=== PATIENT | female | born 1955 | race Caucasian/White ===

== ENCOUNTER 2017-11-12 18:34 | Inpatient (IN) ==
[2017-11-12] MEDS ORDERED: PANTOPRAZOLE 40 MG VIAL IV STA (19:27)
[2017-11-12] MEDS ORDERED: HYDROmorphone 2 MG/1 ML VIAL IV STA (19:27)
[2017-11-12] MEDS ORDERED: SODIUM CHLORIDE 0.9% 500 ML IV STA (19:27)
[2017-11-12] MEDS ORDERED: ONDANSETRON 4 MG/2 ML VIAL IV STA (19:27)
[2017-11-12] MEDS ORDERED: HYDROmorphone 2 MG/1 ML VIAL ONE (19:37)
[2017-11-12] MEDS ORDERED: ONDANSETRON 4 MG/2 ML VIAL ONE (19:37)
[2017-11-12] MEDS ORDERED: PANTOPRAZOLE 40 MG VIAL IV ONE (19:37)
[2017-11-12 19:41] LABS: Basophils # 0.1 10*3/uL (0.0-0.2); Basophils % 0.5 % (0.0-0.8); Eosinophils # 0.2 10*3/uL (0.0-0.87); Eosinophils % 1.6 % (0.00-10.9); Hematocrit 40.8 VOL% (35.7-47.0); Hemoglobin 13.4 GM/DL (12.0-16.0); Immature Granulocytes % 0.5 %; Immature Granulocytes Absolute 0.05 #; Lymphocytes # 2.7 10*3/uL (1.4-4.0); Lymphocytes % 26.1 % (21.3-54.2); Mean Corpuscular HGB Conc 32.8 GM/DL (32-36); Mean Corpuscular Hemoglobin 30 PG (27-34); Mean Corpuscular Volume 90.5 FL (87-102); Mean Platelet Volume 9.7 FL (9.6-12.0); Monocytes # 1.3 10*3/uL (0.11-0.8); Neutrophils # 5.9 10*3/uL (1.4-7.4); Neutrophils % 58.3 % (38.7-73.9); Platelet Count 628 T/CUMM (130-400); Red Blood Count 4.51 MC/CUMM (3.8-5.5); Red Cell Distribution Width 18.5 % (9.3-17.3); White Blood Count 10.2 T/CUMM (4-12)
[2017-11-12 20:15] LABS: Alanine Aminotransferase 17 U/L (13-56); Albumin 2.6 G/DL (3.4-5.0); Alkaline Phosphatase 110 U/L (45-117); Amylase 28 U/L (25-115); Aspartate Amino Transferase 29 U/L (0-37); Blood Urea Nitrogen 9 MG/DL (7-18); Calcium 9.2 MG/DL (8.5-10.1); Glucose 92 MG/DL (74-106); Osmolality,Calculated 268.1 MOS/KG (273-304); Potassium 3.8 MMOL/L (3.5-5.1); Sodium 135 MMOL/L (136-145); Total Protein 6.7 G/DL (6.4-8.3); Troponin I Only < 0.015 NG/ML (0.00-0.045)
[2017-11-12 22:05] LABS: Apearance,Urine CLEAR (Clear); Bilirubin,Urine Negative (Negative); Blood, Urine Negative (Negative); Glucose,Urine (UA) Negative (Negative); Ketones,Urine Negative (Negative); Mucus,Urine Occasional /LPF (Occasional); Nitrite,Urine Negative (Negative); Protein,Urine Negative; Squamous Epithelial Cell,Urine Occasional /HPF (0-10); Urine Color Amber (Yellow); Urine Specific Gravity 1.017 (1.001-1.035); WBC,Urine 4 /HPF (0-6)
[2017-11-12 22:50] LABS: Lactic Acid 1.1 MMOL/L (0.4-2.0)
[2017-11-12] MEDS ORDERED: ONDANSETRON 4 MG/2 ML VIAL IV PRN (22:50)
[2017-11-13] MEDS: ENOXAPARIN 40 MG/0.4 ML SYRINGE SUBCUT SCH ×2 (00:29→23:30)
[2017-11-13] MEDS: SODIUM CHLORIDE 0.9% 1,000 ML IV SCH ×2 (00:33→15:03)
[2017-11-13] MEDS: PHENYTOIN 100 MG/2 ML VIAL IV SCH ×4 (00:33→23:31)
[2017-11-13 06:22] LABS: Basophils # 0.1 10*3/uL (0.0-0.2); Basophils % 0.4 % (0.0-0.8); Eosinophils # 0.2 10*3/uL (0.0-0.87); Eosinophils % 1.4 % (0.00-10.9); Hematocrit 38.2 VOL% (35.7-47.0); Hemoglobin 12.4 GM/DL (12.0-16.0); Immature Granulocytes % 0.4 %; Immature Granulocytes Absolute 0.05 #; Lymphocytes # 2.3 10*3/uL (1.4-4.0); Lymphocytes % 19.7 % (21.3-54.2); Mean Corpuscular HGB Conc 32.5 GM/DL (32-36); Mean Corpuscular Hemoglobin 30 PG (27-34); Mean Platelet Volume 10.3 FL (9.6-12.0); Monocytes # 1.4 10*3/uL (0.11-0.8); Monocytes % 11.9 % (1.7-12.7); Neutrophils # 7.8 10*3/uL (1.4-7.4); Neutrophils % 66.2 % (38.7-73.9); Platelet Count 597 T/CUMM (130-400); Red Cell Distribution Width 18.3 % (9.3-17.3); White Blood Count 11.8 T/CUMM (4-12)
[2017-11-13 06:59] LABS: Blood Urea Nitrogen 8 MG/DL (7-18); Calcium 8.6 MG/DL (8.5-10.1); Glucose 99 MG/DL (74-106); Osmolality,Calculated 270.8 MOS/KG (273-304); Potassium 4.2 MMOL/L (3.5-5.1); Sodium 137 MMOL/L (136-145)
[2017-11-13] MEDS ORDERED: DORZOLAMIDE/TIMOLOL OPH SOLN 10 ML BOTTLE RIGHT EYE SCH (09:00)
[2017-11-13] MEDS: PANTOPRAZOLE 40 MG VIAL IV SCH (09:01)
[2017-11-13] MEDS: BRIMONIDINE 0.1% OPH SOLN 5 ML BOTTLE RIGHT EYE SCH ×3 (09:02→21:57)
[2017-11-13] MEDS ORDERED: SKIN HEALING OINT (AQUAPHOR) 50 GM TUBE TOP PRN (14:15)
[2017-11-13] MEDS: BIMATOPROST 0.01% OPH SOLN 2.5 ML BOTTLE RIGHT EYE SCH (21:56)
[2017-11-13] MEDS: ZINC OXIDE PASTE 113 GM TUBE TOP SCH (21:58)
[2017-11-14] MEDS: SODIUM CHLORIDE 0.9% 1,000 ML IV SCH ×2 (05:05→15:06)
[2017-11-14 06:32] LABS: Calcium 8.5 MG/DL (8.5-10.1); Osmolality,Calculated 271.8 MOS/KG (273-304); Potassium 3.7 MMOL/L (3.5-5.1)
[2017-11-14] MEDS: PANTOPRAZOLE 40 MG VIAL IV SCH (09:20)
[2017-11-14] MEDS: ZINC OXIDE PASTE 113 GM TUBE TOP SCH ×2 (09:21→22:20)
[2017-11-14] MEDS: BRIMONIDINE 0.1% OPH SOLN 5 ML BOTTLE RIGHT EYE SCH ×3 (09:21→22:33)
[2017-11-14] MEDS: PHENYTOIN 100 MG/2 ML VIAL IV SCH ×2 (09:21→15:07)
[2017-11-14] MEDS ORDERED: LORazepam 2 MG/1 ML VIAL IV ONE (15:41)
[2017-11-14] MEDS: MIRTAZAPINE 15 MG TABLET PEG SCH (22:31)
[2017-11-14] MEDS: LORazepam 0.5 MG TABLET PEG SCH (22:31)
[2017-11-14] MEDS: BIMATOPROST 0.01% OPH SOLN 2.5 ML BOTTLE RIGHT EYE SCH (22:33)
[2017-11-15] MEDS: PHENYTOIN 100 MG/2 ML VIAL IV SCH ×3 (04:49→16:47)
[2017-11-15] MEDS: SODIUM CHLORIDE 0.9% 1,000 ML IV SCH ×2 (05:00→22:35)
[2017-11-15 05:46] LABS: Calcium 8.3 MG/DL (8.5-10.1); Osmolality,Calculated 267.1 MOS/KG (273-304); Potassium 4.3 MMOL/L (3.5-5.1)
[2017-11-15] MEDS: ENOXAPARIN 40 MG/0.4 ML SYRINGE SUBCUT SCH (06:14)
[2017-11-15] MEDS: LEVOTHYROXINE 112 MCG TABLET PEG SCH (06:26)
[2017-11-15] MEDS: QUEtiapine 25 MG TABLET PEG SCH (10:20)
[2017-11-15] MEDS: LORazepam 0.5 MG TABLET PEG SCH ×2 (10:20→22:16)
[2017-11-15] MEDS: ZINC OXIDE PASTE 113 GM TUBE TOP SCH ×2 (10:21→21:19)
[2017-11-15] MEDS: BRIMONIDINE 0.1% OPH SOLN 5 ML BOTTLE RIGHT EYE SCH ×3 (10:21→22:33)
[2017-11-15] MEDS: PANTOPRAZOLE 40 MG VIAL IV SCH (10:22)
[2017-11-15] MEDS: MIRTAZAPINE 15 MG TABLET PEG SCH (22:17)
[2017-11-15] MEDS: BIMATOPROST 0.01% OPH SOLN 2.5 ML BOTTLE RIGHT EYE SCH (22:33)
[2017-11-16] MEDS: ENOXAPARIN 40 MG/0.4 ML SYRINGE SUBCUT SCH ×2 (04:23→22:49)
[2017-11-16] MEDS: PHENYTOIN 100 MG/2 ML VIAL IV SCH ×3 (04:26→19:01)
[2017-11-16] MEDS: LEVOTHYROXINE 112 MCG TABLET PEG SCH (06:38)
[2017-11-16] MEDS: BRIMONIDINE 0.1% OPH SOLN 5 ML BOTTLE RIGHT EYE SCH ×3 (09:33→21:17)
[2017-11-16] MEDS: ZINC OXIDE PASTE 113 GM TUBE TOP SCH ×2 (09:34→21:13)
[2017-11-16] MEDS: LORazepam 0.5 MG TABLET PEG SCH ×2 (09:34→21:13)
[2017-11-16] MEDS: QUEtiapine 25 MG TABLET PEG SCH (09:34)
[2017-11-16] MEDS: PANTOPRAZOLE 40 MG VIAL IV SCH (09:34)
[2017-11-16] MEDS: SODIUM CHLORIDE 0.9% 1,000 ML IV SCH ×2 (09:35→21:22)
[2017-11-16 20:19] VITALS: BP 128/70
[2017-11-16] MEDS: MIRTAZAPINE 15 MG TABLET PEG SCH (21:13)
[2017-11-16] MEDS: BIMATOPROST 0.01% OPH SOLN 2.5 ML BOTTLE RIGHT EYE SCH (21:17)
== END 2017-11-16 23:05 | DRG 395 ==
LOC: EDUNIT# → N.ED 18:34 → SUATTDRO 22:49 → N.EDINP 22:49 → N.3E 23:12
PROVIDERS: ADMIT Internal Medicine; ATTEND Family Medicine

== ENCOUNTER 2019-05-10 10:12 | Observation (INO) ==
[2019-05-10] MEDS ORDERED: LORazepam 2 MG/1 ML VIAL IV STA (11:17)
[2019-05-10 11:30] LABS: Basophils % 0.3 % (0.0-0.8); Eosinophils % 0.1 % (0.00-10.9); Hematocrit 43.4 VOL% (35.7-47.0); Hemoglobin 14.7 GM/DL (12.0-16.0); Immature Granulocytes % 0.3 %; Immature Granulocytes Absolute 0.03 #; Lymphocytes # 1.2 10*3/uL (1.4-4.0); Lymphocytes % 13.3 % (21.3-54.2); Mean Corpuscular HGB Conc 33.9 GM/DL (32-36); Mean Corpuscular Volume 89.3 FL (87-102); Mean Platelet Volume 9.7 FL (9.6-12.0); Monocytes % 13.8 % (1.7-12.7); Neutrophils % 72.2 % (38.7-73.9); Platelet Count 366 T/CUMM (130-400); Red Blood Count 4.86 MC/CUMM (3.8-5.5); Red Cell Distribution Width 13.2 % (9.3-17.3); White Blood Count 8.8 T/CUMM (4-12)
[2019-05-10 12:06] LABS: Albumin 3.8 G/DL (3.4-5.0); Bilirubin,Total 0.4 MG/DL (0.2-1.0); Calcium 9.5 MG/DL (8.5-10.1); Osmolality,Calculated 266.2 MOS/KG (273-304); Total Protein 8.2 G/DL (6.4-8.3)
[2019-05-10 12:40] LABS: Amorphous Crystals,Urine Occasional /HPF (Few); Apearance,Urine Slightly Hazy (Clear); Bacteria,Urine Occasional /HPF (Few); Bilirubin,Urine Negative (Negative); Blood, Urine Negative (Negative); Glucose,Urine (UA) Negative (Negative); Ketones,Urine Negative (Negative); Mucus,Urine Occasional /LPF (Occasional); Nitrite,Urine Negative (Negative); Protein,Urine Negative; RBC,Urine 1 /HPF (0-4); Squamous Epithelial Cell,Urine Occasional /HPF (0-10); Urine Color Yellow (Yellow); Urine Specific Gravity 1.015 (1.001-1.035); Urine Urobilinogen < 2.0 EU/DL (0.2-1.0); WBC,Urine 1 /HPF (0-6)
[2019-05-10] MEDS ORDERED: LACTULOSE 20 GM/30 ML UDCUP PO PRN (13:10)
[2019-05-10] MEDS ORDERED: ACETAMINOPHEN 325 MG TABLET PO PRN (13:10)
[2019-05-10] MEDS ORDERED: ONDANSETRON 4 MG/2 ML VIAL IV PRN (13:10)
[2019-05-10] MEDS ORDERED: ACETAMINOPHEN 325 MG/10.15 ML UDCUP PO PRN (14:00)
[2019-05-10] MEDS ORDERED: BISACODYL 10 MG SUPP RECTAL ONE (14:02)
[2019-05-10] MEDS: BRIMONIDINE 0.1% OPH SOLN 5 ML BOTTLE RIGHT EYE SCH ×2 (15:42→21:04)
[2019-05-10] MEDS: POLYETHYLENE GLYCOL POWDER 17 GM PACK PEG SCH ×2 (15:42→21:04)
[2019-05-10] MEDS: ALUMINUM/MAGNES/SIMETH MAX STR 30 ML UDCUP PEG SCH ×2 (15:42→21:04)
[2019-05-10] MEDS: SODIUM CHLORIDE 0.9% 1,000 ML IV SCH (16:38)
[2019-05-10] MEDS ORDERED: MIRTAZAPINE 15 MG TABLET PEG SCH (20:00)
[2019-05-10] MEDS ORDERED: BIMATOPROST 0.01% OPH SOLN 2.5 ML BOTTLE RIGHT EYE SCH (20:00)
[2019-05-10] MEDS ORDERED: ENOXAPARIN 40 MG/0.4 ML SYRINGE SUBCUT SCH (21:00)
[2019-05-10] MEDS: LORazepam 0.5 MG TABLET PEG SCH (21:03)
[2019-05-10] MEDS: risperiDONE 1 MG TABLET PEG SCH (21:03)
[2019-05-10] MEDS: DOCUSATE SODIUM 100 MG/10 ML UDCUP PO SCH (21:03)
[2019-05-10] MEDS: PHENYTOIN 100 MG/4 ML UDCUP PER TUBE SCH (21:03)
[2019-05-10] MEDS: DORZOLAMIDE/TIMOLOL OPH SOLN 10 ML BOTTLE RIGHT EYE SCH (21:04)
[2019-05-10] MEDS: OXcarbazepine 300 MG TABLET PEG SCH (21:04)
[2019-05-10] MEDS: FAMOTIDINE 20 MG/2 ML VIAL IV SCH (21:04)
[2019-05-11] MEDS: SODIUM CHLORIDE 0.9% 1,000 ML IV SCH ×2 (02:33→10:35)
[2019-05-11 05:22] LABS: Basophils % 0.4 % (0.0-0.8); Eosinophils # 0.1 10*3/uL (0.0-0.87); Hematocrit 38.6 VOL% (35.7-47.0); Immature Granulocytes % 0.1 %; Immature Granulocytes Absolute 0.01 #; Lymphocytes # 1.4 10*3/uL (1.4-4.0); Mean Corpuscular HGB Conc 33.7 GM/DL (32-36); Mean Corpuscular Volume 91.9 FL (87-102); Mean Platelet Volume 10.8 FL (9.6-12.0); Monocytes % 13.9 % (1.7-12.7); Neutrophils % 65.6 % (38.7-73.9); Platelet Count 310 T/CUMM (130-400); Red Cell Distribution Width 13.7 % (9.3-17.3); White Blood Count 7.1 T/CUMM (4-12)
[2019-05-11 05:31] LABS: Calcium 8.7 MG/DL (8.5-10.1); Osmolality,Calculated 267.1 MOS/KG (273-304)
[2019-05-11] MEDS ORDERED: LEVOTHYROXINE 112 MCG TABLET PEG SCH (06:00)
[2019-05-11] MEDS: PHENYTOIN 100 MG/4 ML UDCUP PER TUBE SCH (06:24)
[2019-05-11] MEDS ORDERED: QUEtiapine 100 MG TABLET PEG SCH (07:00)
[2019-05-11] MEDS ORDERED: POTASSIUM CHLORIDE 20 MEQ/15 ML UDCUP PEG SCH (08:00)
[2019-05-11] MEDS: BRIMONIDINE 0.1% OPH SOLN 5 ML BOTTLE RIGHT EYE SCH (08:34)
[2019-05-11] MEDS: ALUMINUM/MAGNES/SIMETH MAX STR 30 ML UDCUP PEG SCH (08:35)
[2019-05-11] MEDS: DOCUSATE SODIUM 100 MG/10 ML UDCUP PO SCH (08:35)
[2019-05-11] MEDS: OXcarbazepine 300 MG TABLET PEG SCH (08:35)
[2019-05-11] MEDS: LORazepam 0.5 MG TABLET PEG SCH (08:35)
[2019-05-11] MEDS: risperiDONE 1 MG TABLET PEG SCH (08:36)
[2019-05-11] MEDS: POLYETHYLENE GLYCOL POWDER 17 GM PACK PEG SCH (08:36)
[2019-05-11] MEDS: FAMOTIDINE 20 MG/2 ML VIAL IV SCH (08:36)
[2019-05-11] MEDS ORDERED: LANSOPRAZOLE ODT 30 MG TABLET PO SCH (09:00)
[2019-05-11] MEDS ORDERED: BISACODYL 5 MG TABLET PO SCH (09:00)
[2019-05-11] MEDS: DORZOLAMIDE/TIMOLOL OPH SOLN 10 ML BOTTLE RIGHT EYE SCH (10:01)
[2019-05-11 11:45] VITALS: BP 135/91
== END 2019-05-11 14:42 ==
LOC: EDBD → EDUNIT# → N.ED 10:12 → N.EDINP 10:12 → N.2E 13:30
PROVIDERS: ADMIT Hospitalist; ATTEND Hospitalist

== ENCOUNTER 2019-10-22 12:43 | Inpatient (IN) ==
[2019-10-22 14:50] LABS: Basophils # 0.1 10*3/uL (0.0-0.2); Basophils % 0.5 % (0.0-0.8); Eosinophils # 0.1 10*3/uL (0.0-0.87); Eosinophils % 1.1 % (0.00-10.9); Hematocrit 40.5 VOL% (35.7-47.0); Hemoglobin 13.6 GM/DL (12.0-16.0); Immature Granulocytes % 0.5 %; Immature Granulocytes Absolute 0.05 #; Lymphocytes # 1.7 10*3/uL (1.4-4.0); Lymphocytes % 17.6 % (21.3-54.2); Mean Corpuscular HGB Conc 33.6 GM/DL (32-36); Mean Corpuscular Volume 92.3 FL (87-102); Mean Platelet Volume 9.5 FL (9.6-12.0); Monocytes % 11.9 % (1.7-12.7); Neutrophils % 68.4 % (38.7-73.9); Platelet Count 355 T/CUMM (130-400); Red Blood Count 4.39 MC/CUMM (3.8-5.5); White Blood Count 9.8 T/CUMM (4-12)
[2019-10-22 15:15] LABS: Albumin 3.1 G/DL (3.4-5.0); Bilirubin,Total 0.4 MG/DL (0.2-1.0); Calcium 8.6 MG/DL (8.5-10.1); Osmolality,Calculated 258.8 MOS/KG (273-304); Total Protein 7.2 G/DL (6.4-8.3)
[2019-10-22] MEDS ORDERED: MAGNESIUM SULF RIDER 2 GM in PREMIX 1 EACH IV PRN (16:46)
[2019-10-22] MEDS ORDERED: MAGNESIUM SULF RIDER 4 GM in PREMIX 1 EACH IV PRN (16:46)
[2019-10-22] MEDS ORDERED: LORazepam 2 MG/1 ML VIAL IV PRN (16:49)
[2019-10-22] MEDS ORDERED: PHENYTOIN 100 MG/2 ML VIAL IV SCH (17:00)
[2019-10-22] MEDS: SODIUM CHLORIDE 0.9% 1,000 ML IV SCH (18:00)
[2019-10-22] MEDS ORDERED: LORazepam 2 MG/1 ML VIAL IV ONE (18:33)
[2019-10-22] MEDS: ENOXAPARIN 40 MG/0.4 ML SYRINGE SUBCUT SCH (19:15)
[2019-10-22] MEDS: LORazepam 2 MG/1 ML VIAL IV SCH (21:09)
[2019-10-22] MEDS: PANTOPRAZOLE 40 MG VIAL IV SCH (21:11)
[2019-10-22] MEDS: BIMATOPROST 0.01% OPH SOLN 2.5 ML BOTTLE RIGHT EYE SCH (21:13)
[2019-10-22] MEDS: BRIMONIDINE 0.1% OPH SOLN 5 ML BOTTLE RIGHT EYE SCH (21:13)
[2019-10-22] MEDS: DORZOLAMIDE/TIMOLOL OPH SOLN 10 ML BOTTLE RIGHT EYE SCH (21:16)
[2019-10-22] MEDS: PHENYTOIN IV SCH (21:17)
[2019-10-22] MEDS: SODIUM CHLORIDE 0.9% IV SCH (21:17)
[2019-10-23] MEDS: MORPHINE 4 MG/1 ML VIAL IV PRN ×2 (02:22→13:29)
[2019-10-23 05:35] LABS: Basophils # 0.1 10*3/uL (0.0-0.2); Basophils % 0.6 % (0.0-0.8); Eosinophils # 0.1 10*3/uL (0.0-0.87); Eosinophils % 1.4 % (0.00-10.9); Hematocrit 38.3 VOL% (35.7-47.0); Hemoglobin 12.8 GM/DL (12.0-16.0); Immature Granulocytes % 0.5 %; Immature Granulocytes Absolute 0.04 #; Lymphocytes # 1.4 10*3/uL (1.4-4.0); Lymphocytes % 16.8 % (21.3-54.2); Mean Corpuscular HGB Conc 33.4 GM/DL (32-36); Mean Corpuscular Volume 92.3 FL (87-102); Mean Platelet Volume 10.1 FL (9.6-12.0); Monocytes % 13.5 % (1.7-12.7); Neutrophils % 67.2 % (38.7-73.9); Platelet Count 343 T/CUMM (130-400); Red Blood Count 4.15 MC/CUMM (3.8-5.5); White Blood Count 8.5 T/CUMM (4-12)
[2019-10-23] MEDS: PHENYTOIN IV SCH ×3 (05:54→22:10)
[2019-10-23] MEDS: SODIUM CHLORIDE 0.9% IV SCH ×3 (05:54→22:10)
[2019-10-23 06:00] LABS: Albumin 2.9 G/DL (3.4-5.0); Bilirubin,Total 1.3 MG/DL (0.2-1.0); Calcium 8.3 MG/DL (8.5-10.1); Osmolality,Calculated 265.2 MOS/KG (273-304); Total Protein 6.7 G/DL (6.4-8.3)
[2019-10-23 06:06] LABS: Risk Ratio 3.44; Thyroid Stimulating Hormone 2.19 uIU/ml (0.358-3.74)
[2019-10-23] MEDS: PANTOPRAZOLE 40 MG VIAL IV SCH ×2 (08:10→22:07)
[2019-10-23] MEDS: BRIMONIDINE 0.1% OPH SOLN 5 ML BOTTLE RIGHT EYE SCH ×3 (08:10→22:14)
[2019-10-23] MEDS: DORZOLAMIDE/TIMOLOL OPH SOLN 10 ML BOTTLE RIGHT EYE SCH ×2 (08:10→22:14)
[2019-10-23] MEDS: LORazepam 2 MG/1 ML VIAL IV SCH ×2 (08:12→22:02)
[2019-10-23] MEDS ORDERED: NEOSTIGMINE 10 MG/10 ML VIAL IV SCH (11:30)
[2019-10-23] MEDS: NEOSTIGMINE SUBCUT SCH ×2 (13:31→22:01)
[2019-10-23] MEDS: ENOXAPARIN 40 MG/0.4 ML SYRINGE SUBCUT SCH (22:03)
[2019-10-23] MEDS: BIMATOPROST 0.01% OPH SOLN 2.5 ML BOTTLE RIGHT EYE SCH (22:14)
[2019-10-24] MEDS: SODIUM CHLORIDE 0.9% 1,000 ML IV SCH ×3 (00:37→11:15)
[2019-10-24] MEDS: SODIUM CHLORIDE 0.9% IV SCH ×3 (07:06→21:40)
[2019-10-24] MEDS: PHENYTOIN IV SCH ×3 (07:06→21:40)
[2019-10-24] MEDS: NEOSTIGMINE SUBCUT SCH ×3 (07:08→21:29)
[2019-10-24 07:25] LABS: Basophils % 0.5 % (0.0-0.8); Eosinophils # 0.1 10*3/uL (0.0-0.87); Eosinophils % 1.3 % (0.00-10.9); Hematocrit 37.7 VOL% (35.7-47.0); Hemoglobin 12.6 GM/DL (12.0-16.0); Immature Granulocytes % 0.4 %; Immature Granulocytes Absolute 0.03 #; Lymphocytes # 1.1 10*3/uL (1.4-4.0); Lymphocytes % 14.4 % (21.3-54.2); Mean Corpuscular HGB Conc 33.4 GM/DL (32-36); Mean Corpuscular Volume 92.6 FL (87-102); Mean Platelet Volume 9.6 FL (9.6-12.0); Neutrophils % 72.4 % (38.7-73.9); Platelet Count 300 T/CUMM (130-400); Red Blood Count 4.07 MC/CUMM (3.8-5.5); Red Cell Distribution Width 13.9 % (9.3-17.3); White Blood Count 7.9 T/CUMM (4-12)
[2019-10-24 07:44] LABS: Albumin 2.7 G/DL (3.4-5.0); Bilirubin,Total 0.4 MG/DL (0.2-1.0); Calcium 8.1 MG/DL (8.5-10.1); Osmolality,Calculated 262.4 MOS/KG (273-304); Total Protein 6.4 G/DL (6.4-8.3)
[2019-10-24] MEDS: DORZOLAMIDE/TIMOLOL OPH SOLN 10 ML BOTTLE RIGHT EYE SCH ×2 (09:14→21:28)
[2019-10-24] MEDS: BRIMONIDINE 0.1% OPH SOLN 5 ML BOTTLE RIGHT EYE SCH ×3 (09:14→21:26)
[2019-10-24] MEDS: LORazepam 2 MG/1 ML VIAL IV SCH ×2 (09:15→21:36)
[2019-10-24] MEDS: PANTOPRAZOLE 40 MG VIAL IV SCH ×2 (09:18→21:34)
[2019-10-24] MEDS: DEXTROSE 5% NACL 0.9% 1,000 ML IV SCH ×2 (10:53→23:33)
[2019-10-24] MEDS ORDERED: VANCOMYCIN INJ 1,000 MG in SODIUM CHLORIDE 0.9% 250 ML IV ONE (11:30)
[2019-10-24] MEDS ORDERED: NEOSTIGMINE 10 MG/10 ML VIAL SUBCUT SCH (12:00)
[2019-10-24 15:52] LABS: Apearance,Urine CLEAR (Clear); Bilirubin,Urine Negative (Negative); Blood, Urine Negative (Negative); Glucose,Urine (UA) Negative (Negative); Ketones,Urine Negative (Negative); Mucus,Urine Occasional /LPF (Occasional); Nitrite,Urine Negative (Negative); Protein,Urine Negative; RBC,Urine 1 /HPF (0-4); Squamous Epithelial Cell,Urine Occasional /HPF (0-10); Urine Color Yellow (Yellow); Urine Specific Gravity 1.009 (1.001-1.035); Urine Urobilinogen < 2.0 EU/DL (0.2-1.0); WBC,Urine 1 /HPF (0-6)
[2019-10-24] MEDS: BIMATOPROST 0.01% OPH SOLN 2.5 ML BOTTLE RIGHT EYE SCH (21:25)
[2019-10-24] MEDS: ENOXAPARIN 40 MG/0.4 ML SYRINGE SUBCUT SCH (21:30)
[2019-10-25] MEDS: SODIUM CHLORIDE 0.9% IV SCH ×3 (04:37→20:21)
[2019-10-25] MEDS: PHENYTOIN IV SCH ×3 (04:37→20:21)
[2019-10-25 05:13] LABS: Basophils % 0.5 % (0.0-0.8); Eosinophils # 0.2 10*3/uL (0.0-0.87); Eosinophils % 2.4 % (0.00-10.9); Hematocrit 38.6 VOL% (35.7-47.0); Immature Granulocytes % 0.4 %; Immature Granulocytes Absolute 0.03 #; Lymphocytes # 1.4 10*3/uL (1.4-4.0); Mean Corpuscular HGB Conc 33.7 GM/DL (32-36); Mean Corpuscular Volume 91.9 FL (87-102); Mean Platelet Volume 10.3 FL (9.6-12.0); Monocytes % 11.1 % (1.7-12.7); Neutrophils % 67.6 % (38.7-73.9); Platelet Count 312 T/CUMM (130-400); Red Cell Distribution Width 13.7 % (9.3-17.3); White Blood Count 7.9 T/CUMM (4-12)
[2019-10-25 05:38] LABS: Calcium 8.3 MG/DL (8.5-10.1); Osmolality,Calculated 272.7 MOS/KG (273-304)
[2019-10-25 05:44] LABS: Albumin 3.1 G/DL (3.4-5.0); Bilirubin,Total 0.5 MG/DL (0.2-1.0); Calcium 8.5 MG/DL (8.5-10.1); Osmolality,Calculated 272.7 MOS/KG (273-304); Total Protein 6.6 G/DL (6.4-8.3)
[2019-10-25] MEDS: BRIMONIDINE 0.1% OPH SOLN 5 ML BOTTLE RIGHT EYE SCH ×3 (08:21→20:12)
[2019-10-25] MEDS: NEOSTIGMINE SUBCUT SCH ×2 (08:21→20:20)
[2019-10-25] MEDS: DORZOLAMIDE/TIMOLOL OPH SOLN 10 ML BOTTLE RIGHT EYE SCH ×2 (08:21→20:11)
[2019-10-25] MEDS: LORazepam 2 MG/1 ML VIAL IV SCH ×2 (08:24→20:09)
[2019-10-25] MEDS: PANTOPRAZOLE 40 MG VIAL IV SCH ×2 (08:34→20:07)
[2019-10-25] MEDS: DEXTROSE 5% NACL 0.9% 1,000 ML IV SCH (11:30)
[2019-10-25] MEDS: POTASSIUM CHLORIDE RIDER 10 MEQ in PREMIX 1 EACH IV SCH ×2 (11:34→14:03)
[2019-10-25] MEDS: VANCOMYCIN INJ 1,250 MG in SODIUM CHLORIDE 0.9% 250 ML IV SCH (16:52)
[2019-10-25] MEDS: MORPHINE 4 MG/1 ML VIAL IV PRN (16:54)
[2019-10-25] MEDS ORDERED: DEXTROSE 10% 1,000 ML IV PRN (17:00)
[2019-10-25] MEDS: ENOXAPARIN 40 MG/0.4 ML SYRINGE SUBCUT SCH (20:10)
[2019-10-25] MEDS: BIMATOPROST 0.01% OPH SOLN 2.5 ML BOTTLE RIGHT EYE SCH (20:13)
[2019-10-25] MEDS: TRACE ELEMENTS (5) 1 ML, MULTIVITAMIN INJ 10 ML in AMINO ACIDS/DEXT/LYTES 4.25-5% 2,000 ML IV SCH (21:07)
[2019-10-26] MEDS: DEXTROSE 5% NACL 0.9% 1,000 ML IV SCH ×2 (01:33→09:50)
[2019-10-26] MEDS: VANCOMYCIN INJ 1,250 MG in SODIUM CHLORIDE 0.9% 250 ML IV SCH ×2 (01:33→14:29)
[2019-10-26] MEDS: MORPHINE 4 MG/1 ML VIAL IV PRN ×2 (03:11→10:37)
[2019-10-26 04:35] LABS: Basophils % 0.6 % (0.0-0.8); Eosinophils # 0.2 10*3/uL (0.0-0.87); Eosinophils % 2.4 % (0.00-10.9); Hemoglobin 11.6 GM/DL (12.0-16.0); Immature Granulocytes % 0.3 %; Immature Granulocytes Absolute 0.02 #; Lymphocytes # 1.2 10*3/uL (1.4-4.0); Lymphocytes % 17.8 % (21.3-54.2); Mean Corpuscular HGB Conc 32.2 GM/DL (32-36); Mean Corpuscular Volume 96.5 FL (87-102); Mean Platelet Volume 11.2 FL (9.6-12.0); Monocytes % 12.2 % (1.7-12.7); Neutrophils % 66.7 % (38.7-73.9); Platelet Count 198 T/CUMM (130-400); Red Blood Count 3.73 MC/CUMM (3.8-5.5); Red Cell Distribution Width 14.1 % (9.3-17.3); White Blood Count 6.7 T/CUMM (4-12)
[2019-10-26 04:48] LABS: Calcium 8.4 MG/DL (8.5-10.1); Osmolality,Calculated 266.5 MOS/KG (273-304)
[2019-10-26] MEDS: PHENYTOIN IV SCH ×3 (05:30→23:11)
[2019-10-26] MEDS: SODIUM CHLORIDE 0.9% IV SCH ×3 (05:30→23:11)
[2019-10-26] MEDS: DORZOLAMIDE/TIMOLOL OPH SOLN 10 ML BOTTLE RIGHT EYE SCH ×2 (08:28→21:47)
[2019-10-26] MEDS: BRIMONIDINE 0.1% OPH SOLN 5 ML BOTTLE RIGHT EYE SCH ×3 (08:28→21:46)
[2019-10-26] MEDS: PANTOPRAZOLE 40 MG VIAL IV SCH ×2 (08:29→23:06)
[2019-10-26] MEDS: LORazepam 2 MG/1 ML VIAL IV SCH ×2 (09:19→23:06)
[2019-10-26] MEDS: SODIUM CHLORIDE 0.9% 1,000 ML IV SCH (09:49)
[2019-10-26] MEDS: FAT EMULSION 20% 250 ML IV SCH (14:17)
[2019-10-26] MEDS: BIMATOPROST 0.01% OPH SOLN 2.5 ML BOTTLE RIGHT EYE SCH (21:46)
[2019-10-26] MEDS: TRACE ELEMENTS (5) 1 ML, MULTIVITAMIN INJ 10 ML in AMINO ACIDS/DEXT/LYTES 4.25-5% 2,000 ML IV SCH (21:46)
[2019-10-26] MEDS: ENOXAPARIN 40 MG/0.4 ML SYRINGE SUBCUT SCH (21:47)
[2019-10-27] MEDS: VANCOMYCIN INJ 1,250 MG in SODIUM CHLORIDE 0.9% 250 ML IV SCH (03:06)
[2019-10-27 05:52] LABS: Basophils % 0.4 % (0.0-0.8); Eosinophils # 0.2 10*3/uL (0.0-0.87); Eosinophils % 2.5 % (0.00-10.9); Hematocrit 38.5 VOL% (35.7-47.0); Hemoglobin 12.9 GM/DL (12.0-16.0); Immature Granulocytes % 0.3 %; Immature Granulocytes Absolute 0.02 #; Lymphocytes # 1.6 10*3/uL (1.4-4.0); Mean Corpuscular HGB Conc 33.5 GM/DL (32-36); Mean Corpuscular Volume 91.9 FL (87-102); Mean Platelet Volume 9.9 FL (9.6-12.0); Monocytes % 12.3 % (1.7-12.7); Neutrophils % 64.5 % (38.7-73.9); Platelet Count 316 T/CUMM (130-400); Red Blood Count 4.19 MC/CUMM (3.8-5.5); Red Cell Distribution Width 13.8 % (9.3-17.3); White Blood Count 7.9 T/CUMM (4-12)
[2019-10-27 06:02] LABS: Calcium 8.6 MG/DL (8.5-10.1); Osmolality,Calculated 269.1 MOS/KG (273-304)
[2019-10-27 06:05] LABS: Prealbumin 15.9 MG/DL (20-40)
[2019-10-27] MEDS: PHENYTOIN IV SCH (06:19)
[2019-10-27] MEDS: SODIUM CHLORIDE 0.9% IV SCH (06:19)
[2019-10-27] MEDS: LORazepam 2 MG/1 ML VIAL IV SCH (08:31)
[2019-10-27] MEDS: PANTOPRAZOLE 40 MG VIAL IV SCH (08:31)
[2019-10-27] MEDS: BRIMONIDINE 0.1% OPH SOLN 5 ML BOTTLE RIGHT EYE SCH ×3 (09:16→22:09)
[2019-10-27] MEDS: DORZOLAMIDE/TIMOLOL OPH SOLN 10 ML BOTTLE RIGHT EYE SCH ×2 (09:16→22:08)
[2019-10-27] MEDS: ALUMINUM/MAGNES/SIMETH MAX STR 30 ML UDCUP PEG SCH ×3 (10:44→22:24)
[2019-10-27] MEDS: risperiDONE 1 MG TABLET PEG SCH (10:44)
[2019-10-27] MEDS: LEVOTHYROXINE 112 MCG TABLET PEG SCH (10:44)
[2019-10-27] MEDS: METOCLOPRAMIDE 10 MG/10 ML UDCUP PEG SCH ×2 (10:44→22:24)
[2019-10-27] MEDS: OXcarbazepine 300 MG TABLET PEG SCH ×2 (10:45→22:05)
[2019-10-27] MEDS: SODIUM CHLORIDE 0.9% 1,000 ML IV SCH (11:37)
[2019-10-27] MEDS: MORPHINE 4 MG/1 ML VIAL IV PRN ×2 (11:37→19:33)
[2019-10-27] MEDS: POLYETHYLENE GLYCOL POWDER 17 GM PACK PEG SCH ×2 (14:38→22:03)
[2019-10-27] MEDS: SIMETHICONE CHEW 80 MG TABLET PO SCH ×3 (14:38→22:25)
[2019-10-27] MEDS: LACTULOSE 20 GM/30 ML UDCUP PEG SCH ×3 (14:38→22:05)
[2019-10-27] MEDS: FAT EMULSION 20% 250 ML IV SCH (14:39)
[2019-10-27] MEDS ORDERED: FENOFIBRATE 145 MG TABLET PEG SCH (21:00)
[2019-10-27] MEDS ORDERED: risperiDONE 1 MG TABLET PEG SCH (21:00)
[2019-10-27] MEDS ORDERED: MIRTAZAPINE 15 MG TABLET PEG SCH (21:00)
[2019-10-27] MEDS: ENOXAPARIN 40 MG/0.4 ML SYRINGE SUBCUT SCH (22:03)
[2019-10-27] MEDS: PHENYTOIN 100 MG/4 ML UDCUP PER TUBE SCH (22:03)
[2019-10-27] MEDS: LORazepam 0.5 MG TABLET PEG SCH (22:04)
[2019-10-27] MEDS: BIMATOPROST 0.01% OPH SOLN 2.5 ML BOTTLE RIGHT EYE SCH (22:10)
[2019-10-27] MEDS: TRACE ELEMENTS (5) 1 ML, MULTIVITAMIN INJ 10 ML in AMINO ACIDS/DEXT/LYTES 4.25-5% 2,000 ML IV SCH (22:26)
[2019-10-28] MEDS: SODIUM CHLORIDE 0.9% 1,000 ML IV SCH ×2 (00:58→15:06)
[2019-10-28] MEDS: MORPHINE 4 MG/1 ML VIAL IV PRN (03:34)
[2019-10-28] MEDS ORDERED: OMEPRAZOLE ODT 20 MG TABLET PEG SCH (06:00)
[2019-10-28 06:33] LABS: Basophils % 0.2 % (0.0-0.8); Eosinophils % 0.2 % (0.00-10.9); Hematocrit 46.3 VOL% (35.7-47.0); Immature Granulocytes % 0.5 %; Immature Granulocytes Absolute 0.06 #; Lymphocytes # 0.8 10*3/uL (1.4-4.0); Lymphocytes % 6.4 % (21.3-54.2); Mean Corpuscular HGB Conc 32.4 GM/DL (32-36); Mean Corpuscular Volume 94.1 FL (87-102); Mean Platelet Volume 10.8 FL (9.6-12.0); Monocytes % 2.1 % (1.7-12.7); Neutrophils % 90.6 % (38.7-73.9); Platelet Count 321 T/CUMM (130-400); Red Blood Count 4.92 MC/CUMM (3.8-5.5); Red Cell Distribution Width 14.3 % (9.3-17.3); White Blood Count 12.2 T/CUMM (4-12)
[2019-10-28 06:54] LABS: Band Neutrophils 6 % (0-10); Eosinophils 1 % (0-10); Hypochromasia Slight; Lymphocytes 7 % (20-55); Platelet Estimate Adequate; Segmented Neutrophils 84 % (50-85); Total Cells Counted 100
[2019-10-28 07:02] LABS: Calcium 8.7 MG/DL (8.5-10.1); Osmolality,Calculated 274.8 MOS/KG (273-304)
[2019-10-28 07:10] LABS: Prealbumin 18.3 MG/DL (20-40)
[2019-10-28 08:03] VITALS: BP 86/61
[2019-10-28] MEDS ORDERED: POTASSIUM CHLORIDE 20 MEQ/15 ML UDCUP PEG SCH (09:00)
[2019-10-28] MEDS ORDERED: LINACLOTIDE 145 MCG CAPSULE PER TUBE SCH (09:00)
[2019-10-28] MEDS ORDERED: OMEGA 3 ACID ETHYL ESTERS 1 GM CAPSULE PO SCH (09:00)
[2019-10-28] MEDS: DORZOLAMIDE/TIMOLOL OPH SOLN 10 ML BOTTLE RIGHT EYE SCH (09:28)
[2019-10-28] MEDS: BRIMONIDINE 0.1% OPH SOLN 5 ML BOTTLE RIGHT EYE SCH ×2 (09:28→15:06)
[2019-10-28] MEDS: POLYETHYLENE GLYCOL POWDER 17 GM PACK PEG SCH (09:36)
[2019-10-28] MEDS: risperiDONE 1 MG TABLET PEG SCH (09:37)
[2019-10-28] MEDS: LORazepam 0.5 MG TABLET PEG SCH (09:37)
[2019-10-28] MEDS: SIMETHICONE CHEW 80 MG TABLET PO SCH ×2 (09:38→15:06)
[2019-10-28] MEDS: LEVOTHYROXINE 112 MCG TABLET PEG SCH (09:38)
[2019-10-28] MEDS: OXcarbazepine 300 MG TABLET PEG SCH (09:38)
[2019-10-28] MEDS: METOCLOPRAMIDE 10 MG/10 ML UDCUP PEG SCH (09:45)
[2019-10-28] MEDS: LACTULOSE 20 GM/30 ML UDCUP PEG SCH ×2 (09:45→15:06)
[2019-10-28] MEDS: ALUMINUM/MAGNES/SIMETH MAX STR 30 ML UDCUP PEG SCH (09:46)
[2019-10-28] MEDS: PHENYTOIN 100 MG/4 ML UDCUP PER TUBE SCH (09:46)
[2019-10-28] MEDS: FAT EMULSION 20% 250 ML IV SCH (15:06)
== END 2019-10-28 15:39 | disposition expired | DRG 391 ==
LOC: EDUNIT# → EDBD → N.ED 12:43 → SUPCPDRO 16:38 → N.EDINP 16:38 → N.2E 18:02
PROVIDERS: ADMIT Internal Medicine; ATTEND Internal Medicine